=== PATIENT | female | born 1985 | race Asian ===

== ENCOUNTER → 2019-11-29 15:18 | Outpatient (BNVA) | payer OTHER, SELFPAY | PROVIDERS: Family Provider Internal Medicine; PCP Internal Medicine; Visit Provider Obstetrics & Gynecology | DX: O09.90 Supervision of high risk pregnancy, unspecified, unspecified trimester (principal) | CPT/HCPCS: 82950; 84315; 85027 ==

== ENCOUNTER → 2019-12-17 11:56 | Outpatient (BNVA) | payer OTHER, SELFPAY | PROVIDERS: Family Provider Internal Medicine; PCP Internal Medicine; Visit Provider Obstetrics & Gynecology | DX: O36.63X0 Maternal care for excessive fetal growth, third trimester, not applicable or unspecified (principal); Z3A.32 32 weeks gestation of pregnancy | CPT/HCPCS: 76816; 84315 ==

== ENCOUNTER → 2020-01-08 11:30 | Outpatient (BNVA) | payer OTHER, SELFPAY | PROVIDERS: Family Provider Internal Medicine; PCP Internal Medicine; Visit Provider Obstetrics & Gynecology | DX: O09.893 Supervision of other high risk pregnancies, third trimester (principal) | CPT/HCPCS: 84315; 87081 ==

== ENCOUNTER → 2020-01-28 13:07 | Outpatient (BNVA) | payer OTHER, SELFPAY | PROVIDERS: Family Provider Internal Medicine; PCP Internal Medicine; Visit Provider Obstetrics & Gynecology Female Pelvic Medicine and Reconstructive Surgery | DX: Z01.89 Encounter for other specified special examinations (principal) | CPT/HCPCS: 84315 ==

== ENCOUNTER → 2020-02-04 08:27 | Outpatient (BNVA) | payer OTHER, SELFPAY | PROVIDERS: Family Provider Internal Medicine; PCP Internal Medicine; Visit Provider Obstetrics & Gynecology | DX: O09.523 Supervision of elderly multigravida, third trimester (principal); Z3A.39 39 weeks gestation of pregnancy | CPT/HCPCS: 84315 ==

== ENCOUNTER 2020-02-12 08:10 | Inpatient (IN) | payer OTHER, SELFPAY ==
[2020-02-12] VITALS (44 sets, daily range): BP systolic 0–146; BP diastolic 0–88; PULSE 61–75; RESP 14–18; TEMP 36.5–36.8; O2SAT 96–100; BMI 23.9
--- NOTE | 2020-02-12 | XR_ITS ---
WS: [id number] ABDOMEN 1 VIEW(S) HISTORY: OB COUNT COMPARISON: Study earlier the same day. Normal bowel gas pattern. Radiopaque foreign body seen lateral to the LEFT hip is no longer present. No bone abnormality. XR/XR KUB portable 16031 IMPRESSION: Radiopaque foreign body lateral to the LEFT hip has been removed.
--- NOTE | 2020-02-12 09:40 | PC.NURSE ---
Shahida Haywood RN at bedside at this time explaining to pt the cost of an unmedicated, uncomplicated vaginal delivery. Pt also asked about cost difference with an induction of labor vs not being induced. Pt also asked about the cost of stay for a as well. Shahida answered pts questions thoroughly and pt had no further questions and gave verbal consent to continue with induction of labor. Yolanda Layne RN
[2020-02-12] MEDS: lactated ringers 1,000 ML 999 ML IV ×2 (10:07→13:29)
[2020-02-12 10:12] LABS: Basophils % 0.5 %; Eosinophils # 0.1 10^3/uL (0.0-0.8); Eosinophils % 2.5 %; Hematocrit 40.1 % (37.0-47.0); Lymphocytes # 1.6 10^3/uL (0.8-4.8); Lymphocytes % 28.6 %; Mean Corpuscular HGB Conc 32.4 g/dL (30.0-36.0); Mean Corpuscular Hemoglobin 30.3 pg (28.0-34.0); Mean Corpuscular Volume 93.5 fL (81-99); Mean Platelet Volume 11.1 fL (7.4-10.4); Monocytes # 0.4 10^3/uL (0.2-0.9); Monocytes % 7.5 %; Neutrophils # 3.4 10^3/uL (1.8-7.7); Neutrophils % 60.4 %; Nucleated Red Blood Cells % 0 %; Platelet Count 190 10^3/cmm (130-400); Red Blood Count 4.29 10^6/uL (4.1-5.3); Red Cell Distribution Width 14.1 % (12.1-15.1); White Blood Count 5.6 10^3/uL (4.0-10.0)
[2020-02-12] MEDS: oxytocin 30 UNIT/500 ML BAG IV (10:39)
--- NOTE | 2020-02-12 13:22 | PC.NURSE ---
Dr. Scales at bedside at this time. SVE and amniotomy performed. Moderate amount of clear fluid noted. Dr. Scales reported SVE of 4cm. Received order to recheck cervix in 20 minutes. LR bolus initiated for epidural prep. Pitocin titrated down to 12 miliunits/hr per Dr. Scales request and order received to hold titration of pitocin at this time.
--- NOTE | 2020-02-12 13:46 | PC.NURSE ---
Call to Dr. Scales at this time to report SVE of 5-6cm, this nurse palpated fingers upon exam. Received orders to perform SVE in 15 minutes and call with an update.
--- NOTE | 2020-02-12 13:57 | PC.NURSE ---
SVE performed at this time and nurse palpated hand as presenting part.
--- NOTE | 2020-02-12 13:59 | PC.NURSE ---
Addendum entered by Yolanda Layne RN 02/12/20 18:26: change time of this note to 1404 Original Note: Dr. Scales notified at this time that infants hand if felt during SVE and infants heart rate is decelerating. Dr. Scales requested for section consent to be signed by patient and reported she was on her way in.
--- NOTE | 2020-02-12 14:01 | PC.NURSE ---
Addendum entered by Yolanda Layne RN 02/15/20 11:57: 10 L Oxygen administered via non-rebreather mask by Juana Serrano RN. Original Note: Pitocin turned off at this tme due to heart decelerations. This nurse called for help at this time and assisted pt to left lateral. No change in FHT noted, position changed to right lateral and no change in FHT noted. Nurse assisted pt to hands and knees position at this time. Wilton Serrano RN and Kendy Mccoy, KONRAD at bedside for assistance at this time. 15 oxygen administered via non-rebreather mask; bolus of LR already infusing.
--- NOTE | 2020-02-12 14:12 | PC.NURSE ---
Dr. Scales at bedside. SVE performed. Dr. Scales attempted to move infants hand/arm but was unsuccessful. Decision for section made at 1414.
--- NOTE | 2020-02-12 14:58 | XR_ITS ---
WS: [id number] ABDOMEN 1 VIEW(S) HISTORY: EMERGENT SURGERY COMPARISON: None available. Recent . Radiopaque foreign body in the soft tissues lateral to the LEFT hip. This may be wi thin the folds of the soft tissues but is likely external to the peritoneal cavity. No suspicious calcifications or masses. No bone abnormality. XR/XR abdomen 1V* [id number] IMPRESSION: Curvilinear foreign body which is likely an operative sponge lateral to the LEF T hip.
--- NOTE | 2020-02-12 15:54 | ANES.PREANE2 ---
Pre-Anesthetic Assessment Pre-Anesthetic Assessment: Height/Weight: Height 1.78 m Weight 75.75 kg Temp Pulse Resp BP 97.9 F 63 16 0/0 02/12/20 13:12 02/12/20 13:52 02/12/20 13:12 02/12/20 14:11 Other Pertinent Information: unable to assess due to emergent c section Meds/Allergies Current Medications: Current Medications Generic Name Dose Route Start Last Admin Trade Name Freq PRN Reason Stop Dose Admin Lactated Ringer's 1,000 mls @ 999 m ls/hr 02/12/20 09:01 02/12/20 13:29 Lactated Ringers IV 999 mls/hr .Q1H1M PRN Administration Per L&D Rescitati on Protocol Lactated Ringer's 1,000 mls @ 999 m ls/hr 02/12/20 09:01 02/12/20 13:25 Lactated Ringers IV 999 mls/hr .Q1H1M PRN Infusion GIVE 500 mL bolus Dextrose/Lactated Ringer's 1,000 mls @ 125 m ls/hr 02/12/20 09:15 02/12/20 11:24 Dextrose 5%-Lact ated Ringers IV Not Given .Q8H COLLIN Oxytocin 30 unit in 500 ml s @ 1 mls/hr 02/12/20 09:15 02/12/20 11:15 Pitocin IV 3 milliunit/min .Q24H COLLIN 3 mls/hr Titration Protocol 1 MILLIUNIT/MIN PFSH Anesthesia PFSH: Social History Smoking and tobacco status: never smoked Alcohol intake: never Additional social history: - Drug use: Denies past or current use Alcohol Use: Denies, drank socially prior to Tobacco use: Denies, never smoked 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 Female Reproductive History: : 3 Data Anesthesia CBC & Chem 7: 02/12/20 09:50 Other Labs: Laboratory Results - last 48 hr 02/12/20 09:50 WBC 5.6 RBC 4.29 Hgb 13.0 Hct 40.1 MCV 93.5 MCH 30.3 MCHC 32.4 RDW 14.1 Plt Count 190 MPV 11.1 H Neut % (Auto) 60.4 Lymph % (Auto) 28.6 [place] % (Auto) 7.5 Eos % (Auto) 2.5 Baso % (Auto) 0.5 Neut # (Auto) 3.4 Lymph # (Auto) 1.6 [place] # (Auto) 0.4 Eos # (Auto) 0.1 Baso # (Auto) 0.0 Nucleated RBC % (auto) 0 Nucleated RBCs # 0.0 Cardiac Studies: No Data to Display
--- NOTE | 2020-02-12 15:54 | ANE.PACU2 ---
 Inpatient post-anesthesia follow up: Airway intact: Yes Vital signs: Temperature 97.9 F Pulse Rate 63 Respiratory Rate 16 Blood Pressure 0/0 Pulse Oximetry Oxygen Delivery Me thod Room Air Oxygen Flow Rate Fraction of Inspir ed Oxygen Hydration adequate: Yes Nausea and vomiting: No Mental status: Baseline
[2020-02-12] MEDS: fentaNYL 50 mcg/mL INJ 2mL IVP ×2 (16:27→17:17)
--- NOTE | 2020-02-12 16:49 | P.OP_ITS ---
Operative Report Date of procedure: OPERATIVE REPORT Date of surgery: 02/12/2020 Date of dictation: 02/12/2020 Preoperative diagnosis: 34-year-old 3 para 2-0-0-2 at 40 weeks and 3 days, GBS negative, arm prolapse, nonreassuring heart tracing-category 2 Postoperative diagnosis/findings: Same, baby girl, Apgars 8/9 weighing 7 pounds 4 ounces, normal tubes and ovaries bilaterally Procedure done: Primary low transverse delivery via Pfannenstiel incision Specimens removed/disposition of specimens: Placenta and cord which were discarded Surgeon: Dr. Isabelle Scales Physician recruiting assistant: Kendy Chahal Anesthesia: General endotracheal tube anesthesia Estimated blood loss: 800 ml Urine output: 300 mL Medications: As per anesthesia records Complications: None, patient was extubated and left to recovery in a stable condition Indication for surgery: Ms. Delacruz is a 34-year-old 3 para 2-0-0-2 at 40 weeks and 3 days who presented for scheduled elective induction of labor for term . Upon arrival she was noted to be 3 cm, 70% and -2 station and cephalic. tracing was category 1 and she had no contractions. She was started on Pitocin titrated to a maximum of 15 mIU and she was slightly uncomfortable with this. Pitocin was started at 10:30 AM. At 1:30 PM she was examined and noted to be 4 cm, 80% and -2 station and had a bulging bag and artificial rupture of membranes was performed at this time. Head was thought to be well applied to the cervix. At routine check 20 minutes after AROM the nurse stated that she thought she felt fingers. We repeated the exam 15 minutes later and arm was noted to be prolapsed past the head. Attempt was made to gently replace the arm however this was not possible and as a result decision was made to proceed with delivery. During this last 15 minutes patient had late decelerations thought to be secondary to the arm prolapse. PROCEDURE: After consent was obtained, patient was taken to the operating room where general endotracheal tube anesthesia was placed without difficulty given category 2 tracing. She was placed supine on the table with a left lateral wedge. Ortiz catheter and SCDs were placed. The abdomen was shaved and then prepped with Betadine. She was draped in a sterile fashion. Once intubated, a Pfannenstiel incision was made 2 cm above the pubic symphysis. The incision was carried down to the fascia using the scalpel. The fascia was nicked in the midline and the fascial incision was extended laterally bluntly. The rectus muscle was . The peritoneum was entered bluntly and stretched. No adhesions were noted from the uterus to the anterior abdominal wall. The uterus was noted to be rotated to the left. The bladder peritoneum was grasped with smooth forceps a bladder flap was created. the bladder blade was replaced thus protecting the bladder. A LOW TRANSVERSE UTERINE INCISION was made with a scalpel till the amniotic membrane was reached. The uterine incision was then extended laterally bluntly. Clear amniotic fluid was noted. The head of the baby was brought up to the level of the incision and delivered with fundal pressure. The remainder of body followed without any difficulty. The nose and mouth were suctioned, the umbilical cord was clamped and cut and the baby was handed off to the waiting senior program manager, Dr. Devi. The placenta was delivered spontaneously with fundal massage. It was noted to be intact and was discarded. The interior of the uterus was cleaned of all clot and debris and was noted to be chanda well. The uterus was exteriorized. The uterine incision was closed with 0 Vicryl in a running interlocking manner. Good hemostasis and reapproximation was obtained. Second imbricating layer was placed in [id number] sutures to obtain hemostasis. The abdomen was irrigated and the gutters were cleaned of clot and debris. Normal tubes and ovaries were noted bilaterally. The uterus was placed back into the abdomen and uterine incision was noted to be hemostatic. The peritoneum was closed with a 2-0 plain in a continuous stitch. The rectus muscle was reapproximated with 2-0 plain suture in a mattress stitch. Good hemostasis was noted in the rectus muscle layer. The fascia was inspected for any defects and none were found and the fascia was closed with 0 Vicryl in continuous stitch. The subcutaneous plane was then irrigated and hemostasis was obtained using the Bovie. The subcutaneous plane was then reapproximated using 2-0 plain suture in a continuous manner. The skin was then closed with 4-0 Monocryl in a subcuticular fashion. Good reapproximation and hemostasis was noted. Steri-Strips were applied. -Prior to completing the incision 2 x-rays were performed which confirmed no instruments or laps were left behind given that no count was done due to the emergent nature of the procedure secondary to category 2 tracing. The incision was dressed with Telfa ,ABD and paper tape. The fundus was noted to be firm at the end of the procedure and excess blood was expressed from the vagina. The patient was extubated and left to recover in a stable condition.
--- NOTE | 2020-02-12 16:49 | P.HP_ITS ---
Providers/Chief Complaint Admitting Physician: Isabelle Valladares MD Primary Care Provider: Fanny Devi MD Chief Complaint: induction HPI BOND RUNNER History of Present Illness Ms. Delacruz is a 34-year-old 3 para 2-0-0-2 at 40 weeks and 3 days who presented for scheduled elective induction of labor for term . Upon arrival she was noted to be 3 cm, 70% and -2 station and cephalic. tracing was category 1 and she had no contractions. She was started on Pitocin titrated to a maximum of 15 mIU and she was slightly uncomfortable with this. Pitocin was started at 10:30 AM. At 1:30 PM she was examined and noted to be 4 cm, 80% and -2 station and had a bulging bag and artificial rupture of membranes was performed at this time. Head was thought to be well applied to the cervix. At routine check 20 minutes after AROM the nurse stated that she thought she felt fingers. We repeated the exam 15 minutes later and arm was noted to be prolapsed past the head. Attempt was made to gently replace the arm however this was not possible and as a result decision was made to proceed with delivery. During this last 15 minutes patient had late decelerations thought to be secondary to the arm prolapse. Present Details : 3 Para: 2 Labs Rubella: Immune RPR: Negative GBS: Negative Review of Systems Const: Denies: fever, chills, change in appetite, change in weight, fatigue, malaise or change in sleep pattern Resp: Denies: shortness of breath, productive cough, wheezing or chest congestion GI: Denies: abdominal pain, nausea, vomiting, heartburn/indigestion, diarrhea, constipation, change in bowel habits or blood in stool : Denies: flank pain, painful urination, urinary frequency, urinary urgency, urinary incontinence, genital lesion, vaginal odor, vaginal bleeding, vaginal discharge, change in menstrual flow or pain during intercourse Psych: Denies: anxiety, depression, mood swings or change in appetite Medications/Allergies Home Medications Medication Instructions Recorded Confirmed Last Taken Type prenat.vits,isidra,oet-ytnq-kgllb 1 tab PO DAILY tab 10/24/19 02/13/20 Unknown History magnesium 30 mg tablet 30 mg PO DAILY 12/17/19 02/13/20 Unknown History breast pump #1 each 02/14/20 Unknown Rx docusate sodium 100 mg PO BID PRN #30 cap 02/14/20 Unknown Rx hydrocodone-acetaminophen 1 tab PO Q6H #30 tab 02/14/20 Unknown Rx ibuprofen 800 mg PO Q8H #30 tab 02/14/20 Unknown Rx Allergies Allergy/AdvReac Type Severity Reaction Status Date / Time No Known Allergies Allergy Verified 02/04/20 08:21 PFSH BOND RUNNER PFSH: Medical History No pertinent past medical history Denies diabetes,asthma hypertension, seizures, DVT/PE PCP: REGINA gross Surgical History S/P tonsillectomy (~1988) at the age of 3 or 4 Status post delivery Primary low transverse delivery on 02/12/2020 done for arm prolapse [place] Dr. Scales [place] [facility] Double layer closure with no extensions. 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 Other Female Reproductive History: Menstrual History Comment: Menarche at age 10, regular 30 day cycles lasting for 4 days. Sexual History: STD History Comment: Coitarche at age 30, one lifetime partner her Marc who is a radiation oncologist at [facility]. Contraception: Contraception History Comment: Has only used condoms in the past for contraception. Plans on using condoms as well History History History 3 Term 2 Miscarriages/Ectopic 0 0 Living Children 2 Other History: ; VAVD X 1, X 1, CD X 1 1---> 11/10/2015, augmentation of labor for premature rupture of membranes at 41 weeks and 3 days, GBS positive. Mild chorioamnionitis just prior to delivery treated by antibiotics. vacuum assisted Vaginal delivery with a right mediolateral episiotomy. No or antepartum complications. Baby girl, Nazanin--- [facility] with Yordy 2----> 09/27/2017: Active labor, full-term vaginal delivery at 40 weeks [address] Scales [place] [facility], second-degree perineal tear. Baby girl Doris weighing 8 pounds 10-1/2 ounces 3----> 02/12/2020; induction of labor at 40 weeks and 2 days electively, primary low transverse delivery by Dr. Scales [facility] for arm prolapse after rupture of membranes and category 2 tracing. Baby girlGloria weighing 7 pounds 4 ounces. Normal postoperative course. Care ESTEFANÍA Calculator Estimated Delivery Date Method Current WG Current Estimate 02/09/20 Ultrasound #1 41w 3d Other Estimates 02/18/20 LMP (Certain) 40w 1d Expected Delivery Route/Plan Vaginal. Specific Issues/Plans * Advanced maternal age OB Visit Log Initial Weight: 140 lb Date -?-?-?-?-?-?-?-?-?-?-?- EGA Weight BP Albumin -?-?-?-?-?-?-?-?-?-?-?-?- Glucose Nitrate -?-?-?-?-?-?-?-?-?-?-?-?- Blood Fun Ht PRES HR MVMT -?-?-?-?-?-?-?-?-?-?- Edema Dilation Effacement -?-?-?-?-?-?-?-?-?-?-?- Station 07/20/19 -?-?-?-?-?-?-?-?-?-?-?- 10w 6d 140 lb (+0 oz) 110/60 neg -?-?-?-?-?-?-?-?-?-?-?-?- neg -?-?-?-?-?-?-?-?-?-?-?-?- -?-?-?-?-?-?-?-?-?-?- none -?-?-?-?-?-?-?-?-?-?-?- 07/25/19 -?-?-?-?-?-?-?-?-?-?-?- 11w 4d 142 lb (+2 lb) 108/60 neg -?-?-?-?-?-?-?-?-?-?-?-?- neg -?-?-?-?-?--?-?-?-?-?-?-?- 161 -?-?-?-?-?-?-?-?-?-?- none -?-?-?-?-?-?-?-?-?-?-?- 08/10/19 -?-?-?-?-?-?-?-?-?-?-?- 13w 6d 142 lb (+2 lb) 90/50 neg -?-?-?-?-?-?-?-?-?-?-?-?- neg -?-?-?-?-?-?-?-?-?-?-?-?- 158 -?-?-?-?-?-?-?-?-?-?- none -?-?-?-?-?-?-?-?-?-?-?- 09/05/19 -?-?-?-?-?-?-?-?-?-?-?- 17w 4d 144 lb (+4 lb) 96/60 neg -?-?-?-?-?-?-?-?-?-?-?-?- neg -?-?-?-?-?-?-?-?-?-?-?-?- 157 -?-?-?-?-?-?-?-?-?-?- none -?-?-?-?-?-?-?-?-?-?-?- 10/26/19 -?-?-?-?-?-?-?-?-?-?-?- 24w 6d 152 lb 2 oz (+12 lb 2 oz) 110/70 Neg (Negat bill) -?-?-?-?-?-?-?-?-?-?-?-?- Norm (Normal) Negative (Negat bill) -?-?-?-?-?-?-?-?-?-?-?-?- 23 146 active -?-?-?-?-?-?-?-?-?-?- absent -?-?-?-?-?-?-?-?-?-?-?- 11/29/19 -?-?-?-?-?-?-?-?--?-?-?- 29w 5d 159 lb 4 oz (+19 lb 4 oz) 102/76 Neg (Negat bill) -?-?-?-?-?-?-?-?-?-?-?-?- Norm (Normal) Negative (Negat bill) -?-?-?-?-?-?-?-?-?-?-?-?- 30 141 active -?-?-?-?-?-?-?-?-?-?- absent -?-?-?-?-?-?-?-?-?-?-?- 12/17/19 -?-?-?-?-?-?-?-?-?-?-?- 32w 2d 158 lb 6 oz (+18 lb 6 oz) 100/70 Neg (Negat bill) -?-?-?-?-?-?-?-?-?-?-?-?- Norm (Normal) Negative (Negat bill) -?-?-?-?-?-?-?-?-?-?-?-?- Neg (Negative) 32 145 act bill -?-?-?-?-?-?-?-?-?-?- absent -?-?-?-?-?-?-?-?-?-?-?- 01/08/20 -?-?-?-?-?-?-?-?-?-?-?- 35w 3d 160 lb (+20 lb) 100/60 Neg (Negative ) -?-?-?-?-?-?-?-?-?-?-?-?- Norm (Normal) Negative (Negat bill) -?-?-?-?-?-?-?-?-?-?-?-?- Neg (Negative) 35.5 Cephalic 157 157 active -?-?-?-?-?-?-?-?-?-?- absent 20 -?-?-?-?-?-?-?-?-?-?-?- -1 01/28/20 -?-?-?-?-?-?-?-?-?-?-?- 38w 2d 163 lb (+23 lb) 132/68 Neg (Negative ) -?-?-?-?--?-?-?-?-?-?-?-?- Norm (Normal) Negative (Negat bill) -?-?-?-?-?-?-?-?-?-?-?-?- Neg (Negative) 36 cephalic 133 active -?-?-?-?-?-?-?-?-?-?- absent 1 50 -?-?-?-?-?-?-?-?-?-?-?- -2 02/04/20 -?-?-?-?-?-?-?-?-?-?-?- 39w 2d 167 lb (+27 lb) 100/64 Neg (Negative ) -?--?-?-?-?-?-?-?-?-?-?-?- Norm (Normal) Negative (Negat bill) -?-?-?-?-?-?-?-?-?-?-?-?- Neg (Negative) 39 Cephalic 133 active -?-?-?-?-?-?-?-?-?-?- absent 2-3 70 -?-?-?-?-?-?-?-?-?-?-?- -1 02/12/20 -?-?-?-?-?-?-?-?-?-?-?- 40w 5d 167 lb (+27 lb) 116/70 0/0 117/77 0/0 107/80 0/0 0/0 0/0 0/0 119/80 0/0 116/69 0/0 119/72 0/0 122/79 0/0 115/73 129/72 133/80 146/76 135/64 131/76 130/70 136/61 125/78 136/88 124/70 107/71 115/73 115/76 114/72 119/71 123/79 119/76 112/69 117/73 107/65 108/70 100/65 99/60 95/57 90/59 79/48 101/67 100/62 100/62 105/60 115/70 -?-?-?-?-?-?-?-?-?-?-?-?- -?-?-?-?-?-?-?-?-?-?-?-?- Vertex Vertex Vertex Compound 135 130 145 135 130 125 145 130 125 125 130 125 130 135 130 135 115 130 -?-?-?-?-?-?-?-?-?-?- -?-?-?-?-?-?-?-?-?-?-?- -2 -1 -1 Notes Visit Date: 02/12/20 No visit notes to display Visit Date: 02/04/20 KARISHMA@ 39w2d----> no complaints; has questions about labor and induction and will call me if she decides on an induction date; GBS negative; advanced maternal age with low risk NIPT-no further intervention; membranes stripped today Isabelle Valladares MD on 02/04/20 Visit Date: 01/28/20 Patient presents for routine OB states that that she did have some cramping down her right calf today now has stocking type numbness on her right foot. No swelling noted normal sensation to light touch no calf tenderness negative Homans Patient also states decreased movement NST today is reactive bedside biophysical profile by me is 10/10 female fetus cephalic excellent movement tone respiratory efforts normal amniotic fluid Abad Caraballo DO on 01/28/20 rafa Ventura LPN on 01/28/20 Visit Date: 01/08/20 KARISHMA@ 35w3d-----> no complaints; GBS today; advanced maternal age; coronavirus concerns addressed; increased ambulation after 37 weeks- Isabelle Valladares MD on 01/12/20 Visit Date: 12/17/19 KARISHMA at 32-2/7 WG. GCT and hemogram normal. Ultrasound due to LGA fetus. labor precautions discussed. Clifton Saleh MD on 12/17/19 Visit Date: 11/29/19 KARISHMA at 29-5/7 WG. GCT hemogram today. labor precautions discussed. Exposure to the flu with probable flu last week. At this point, too late for prophylaxis/treatment for the flu. Symptomatic relief discussed. Schedule follow-up ultrasound for growth and facial features. Clifton Saleh MD on 12/03/19 Visit Date: 10/26/19 KARISHMA at 24.6WG----> Anatomy scan needs full review but prelim is normal with the exception of date change. There is 10 day diff in dates therefore, we will change her EDC to 02/09/2020. Reports potential parvo b-19 virus; not con firmed but declines IgG and IgM antibodies today. Encouraged flu vaccine. labor precautions and kick counts reviewed. GCT/CBC at next visit. Franny Heath APN, BROWN on 10/26/19 Visit Date: 09/05/19 No visit notes to display Visit Date: 08/10/19 OB exam at 12w4d------> no complaints; labs drawn today-declined HIV, cystic fibrosis previously negative, hepatitis C antibody and rubella deferred as it was previously within normal limits; flu vaccine recommended; gonorrhea Chlamydia Pap smear and high-risk HPV done today; minimal nausea- symptomatic management discussed; AMA-GCT and NIPT done today; serum AFP if desires at next visit Visit Date: 07/25/19 Initial OB DrWai visit at 10 weeks and 2 days---> advanced maternal age- counseling done-desires NIPT; labs at next visit;; counseling done, gonorrhea Chlamydia and Pap smear at next visit Visit Date: 07/20/19 Obi at 9.4 WG------> 34 y/o with LMP of 05/14/19 (guess) and EDC of 02/18/2020. - guessing at her last menstrual periods but she notes it was in April. - AMA; thoroughly reviewed panorama, quad, AFP -Ob packet provided. Reviewed routine vist schedule, labs, approved medications in , discussed the importance of avoiding nicotine/alcohol/drugs and the effects this has on her and the , and when to notify the doctor. Medical and obstetrical history reviewed. ? -Continue vitamins. - labs at next visit; discussed NIPT, QUAD, AFP, CF. Vitals/I&O/Wt Last Vital Signs Temp 97.9 F 02/12/20 13:12 Pulse 63 02/12/20 13:52 Resp 18 02/12/20 16:27 BP 0/0 02/12/20 14:11 Pulse Ox 100 02/12/20 16:27 02/12/20 02/12/20 02/12/20 06:59 14:59 22:59 Intake Total 820.967 / 820.967 Balance 820.967 / 820.967 Weight last 48 hrs Weight 167 lb Data : 02/13/20 04:05 A&P Assessment and plan (1) Non-reassuring heart rate or rhythm affecting management of fetus: -Discussed with patient that given the recurrent decelerations and the inability toReplace the prolapsed arm that I would recommend we proceed with a . Given that she is having decelerations we will have to do general anesthesia. Consent was obtained after discussing risks benefits and alternatives. -Antibiotics to be given in the operating room -Anesthesia and pediatricians were notified. -To operating room for emergent Status: Resolved (2) Prolapsed arm of fetus: Status: Resolved Attestations Medical Necessity Statement*: Patient is having surgery and will require time to recover Coding Level of Care Code Acute Director Of Land for Chg Fwd Diagnoses Non-reassuring heart rate or rhythm affecting management of fetus Prolapsed arm of fetus O32.2XX0
[2020-02-12] MEDS: ketorolac 30 mg/mL INJ IVP (17:18)
[2020-02-12] MEDS: HYDROcodone-acetaminophen 5-325 mg Tablet PO (20:35)
[2020-02-12] MEDS: docusate sodium 100 mg Capsule PO (20:36)
[2020-02-12] MEDS: dextrose 5%-lactated ringers 1,000 ML 125 ML IV (20:46)
--- NOTE | 2020-02-12 23:57 | PC.NURSE ---
PT AMBULATED IN LU WITH NURSE ALONGSIDE FOR TEN MINUTES AT 2340. PT TOLERATED WELL.
[2020-02-13] VITALS (7 sets, daily range): BP systolic 79–108; BP diastolic 48–70; PULSE 63–76; RESP 14–18; TEMP 36.6–36.9; O2SAT 95–97
[2020-02-13] MEDS: HYDROcodone-acetaminophen 5-325 mg Tablet PO (03:27)
[2020-02-13 04:24] LABS: Hematocrit 29.9 % (37.0-47.0); Hemoglobin 9.9 g/dL (11.5-15.3); Mean Corpuscular HGB Conc 33.1 g/dL (30.0-36.0); Mean Corpuscular Hemoglobin 30.9 pg (28.0-34.0); Mean Corpuscular Volume 93.4 fL (81-99); Mean Platelet Volume 10.8 fL (7.4-10.4); Platelet Count 163 10^3/cmm (130-400); White Blood Count 8.6 10^3/uL (4.0-10.0)
[2020-02-13] MEDS: dextrose 5%-lactated ringers 1,000 ML 125 ML IV (04:28)
[2020-02-13] MEDS: docusate sodium 100 mg Capsule PO (08:18)
[2020-02-13] MEDS: prenatal vitamin Capsule 1 CAP PO (08:18)
--- NOTE | 2020-02-13 10:33 | P.PN_ITS ---
Subjective Subjective: Interval history: Dana is doing okay today. She does have some pain but it is not as bad as it was yesterday and pain medication keeps it under control. Her bleeding is not very heavy. She has been breast-feeding without any difficulty and the nurses have been helping her with the baby. She is voided freely and has been ambulating well. She has not yet passed flatus however is tolerating clears and not having any nausea or vomiting. She denies shortness of breath, chest pain, nausea, vomiting. She does have a little bit of throat pain likely from intubation but is otherwise doing okay. Vitals/I&O/Wt Last Vital Signs Temp 97.9 F 02/14/20 16:30 Pulse 70 02/14/20 17:30 Resp 18 02/14/20 17:30 BP 115/70 02/14/20 17:30 Pulse Ox 97 02/13/20 06:05 Physical Exam Narrative: EXAM NARRATIVE: Gen.: No acute distress Heart: S1-S2 heard, regular rate and rhythm Lungs: Clear to auscultation bilaterally Abdomen: Soft, fundus firm below umbilicus, tenderness around incision. Incision: Clean dry and intact with Steri-Strips, dressing was removed Legs: No calf tenderness, trace bilateral pitting pedal edema. Urinary Catheter Management^: Ortiz: Cath Placed During This Visit: yes, but has since been removed by the nurse Reason for Continuing Indwelling Catheter: Required Immobilization for Trauma or Surgery or Anesthesia Urinary Catheter Date of Insertion: 02/12/20 Urinary Catheter Time of Insertion: 14:22 Date Urinary Catheter Removed: 02/13/20 Time Urinary Catheter Discontinued: 06:00 Data : 02/13/20 04:05 A&P Assessment and plan (1) Status post delivery: Status: Acute Additional A&P Information -34-year-old 3 para 3 status post primary delivery for category 2 tracing and prolapse, postoperative day 1 -Doing well-encourage ambulation and incentive spirometry use -Hemoglobin stable at 9.9 and vital signs are within normal limits -Catheter has been discontinued and she has been voiding freely -Currently on full liquid diet-we will advance diet when she passes flatus- encourage ambulation -Can discontinue IV, incision appears clean dry and intact-abdominal binder provided, prescription breast pump provided -Continue breast-feeding -Anticipate discharge home tomorrow if she continues to do well after she passes gas and tolerates regular diet. Attestations Medical Necessity Statement*: She will need to stay another day at least to recover from . 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 Mild chorioamnionitis just prior to delivery treated by antibiotics. vacuum assisted Vaginal delivery with a right mediolateral episiotomy. No or antepartum complications. Baby Nazanin ortiz--- [facility] [place] with Yordy 2----> 09/27/2017: Active labor, full-term vaginal delivery at 40 weeks [address] Scales at [facility] [place], second-degree perineal tear. Baby angel George weighing 8 pounds 10-1/2 ounces 3----> 02/12/2020; induction of labor at 40 weeks and 2 days electively, primary low transverse delivery by Dr. Scales [facility] [place] for arm prolapse after rupture of membranes and category 2 tracing. Baby Gloria ortiz weighing 7 pounds 4 ounces. Normal postoperative course.
--- NOTE | 2020-02-13 11:28 | W.PM.OPSUD ---
Surgery/Procedure H&P Update DATE OF PROCEDURE: February 13, 2020 DATE H&P PERFORMED: 02/12/20 H&P UPDATE INFORMATION: I have reviewed H&P completed within last 30 days and I have examined patient prior to procedure PREOP DIAGNOSIS: Missed AB PLANNED PROCEDURE: Operation Date: 02/12/20 14:15 Proposed Procedures p Section(Not Applicable) - Isabelle Valladares MD
--- NOTE | 2020-02-13 12:33 | PC.NURSE ---
Abdominal binder applied to patient. Patient states it is tight, but not uncomfortably so.
[2020-02-14 04:30] VITALS: BP 100/62; PULSE 62; RESP 16
[2020-02-14] MEDS: docusate sodium 100 mg Capsule PO (08:46)
[2020-02-14] MEDS: prenatal vitamin Capsule 1 CAP PO (08:46)
[2020-02-14 10:10] VITALS: BP 100/62; PULSE 70; RESP 17
[2020-02-14 16:30] VITALS: BP 105/60; PULSE 60; RESP 16; TEMP 36.6
[2020-02-14 17:30] VITALS: BP 115/70; PULSE 70; RESP 18
--- NOTE | 2020-02-19 17:41 | PM.DCS ---
Discharge Providers Date of Admission: 02/12/20 08:10 Date of Discharge: february 14, 2020 Attending Provider at Admission: Isabelle Valladares MD Attending Provider at Discharge: Isabelle Valladares MD Primary Care Provider: Fanny Devi MD Diagnoses at Discharge Discharge Diagnosis (1) Status post delivery: Status: Acute Problem details: Primary low transverse delivery on 02/12/2020 done for arm prolapse by Dr. Scales at [facility] [place]. Double layer closure with no extensions. Reason for Visit Reason for Visit: Reason For Visit: induction Hospital Course Hospital Course: Ms. Delacruz is a 34-year-old 3 para 2-0-0-2 at 40 weeks and 3 days who presented for scheduled elective induction of labor for term . Upon arrival she was noted to be 3 cm, 70% and -2 station and cephalic. tracing was category 1 and she had no contractions. She was started on Pitocin titrated to a maximum of 15 mIU and she was slightly uncomfortable with this. Pitocin was started at 10:30 AM. At 1:30 PM she was examined and noted to be 4 cm, 80% and -2 station and had a bulging bag and artificial rupture of membranes was performed at this time. Head was thought to be well applied to the cervix. At routine check 20 minutes after AROM the nurse stated that she thought she felt fingers. We repeated the exam 15 minutes later and arm was noted to be prolapsed past the head. Attempt was made to gently replace the arm however this was not possible and as a result decision was made to proceed with delivery. During this last 15 minutes patient had late decelerations thought to be secondary to the arm prolapse. Discharge Summary: She underwent an emergency delivery under general anesthesia on 02/12/2020-see operative report for details. She did well on day 1 and was ambulating well, tolerating clear liquid diet and voiding freely after catheter removal.. She was breast-feeding without difficulty and bonding well with her daughter. Pain was well-controlled with by mouth pain medication. She denied nausea, vomiting, fever, chills, shortness of breath, leg pain. She had moderate vaginal bleeding. On day # 2 she continued to do well with stable vital signs and stable hemoglobin at 9.9. She was tolerating regular diet and passing flatus. Incision was clean dry and intact she was discharged home on day 2 in a stable condition. Warning signs for endometritis, mastitis, DVT/PE were reviewed with her. Post delivery activity restrictions were also reviewed with her at all her questions were answered to her satisfaction. Plans on using condoms or contraception at this time. Physical Exam Narrative: EXAM NARRATIVE: Gen.: No acute distress Heart: S1-S2 heard, regular rate and rhythm Lungs: Clear to auscultation bilaterally Abdomen: Soft, fundus firm below umbilicus, tenderness around incision. Incision: Clean dry and intact with Steri-Strips. Legs: No calf tenderness, trace bilateral pitting pedal edema. Urinary Catheter Management^: Ortiz: Cath Placed During This Visit: yes, but has since been removed by the nurse Reason for Continuing Indwelling Catheter: Required Immobilization for Trauma or Surgery or Anesthesia Urinary Catheter Date of Insertion: 02/12/20 Urinary Catheter Time of Insertion: 14:22 Date Urinary Catheter Removed: 02/13/20 Time Urinary Catheter Discontinued: 06:00 Discharge Data Data Completed and Pending: Completed Studies During Hospitalization Category Date Time Status XR KUB portable [id number] Stat Exams 02/12/20 Completed XR abdomen 1V* [id number] Stat Exams 02/12/20 14:58 Completed Vitals: Last Vital Signs Temp 97.9 F 02/14/20 16:30 Pulse 70 02/14/20 17:30 Resp 18 02/14/20 17:30 BP 115/70 02/14/20 17:30 Pulse Ox 97 02/13/20 06:05 Discharge Plan Discharge Patient Disposition: Home, Self-Care Condition: Stable Prescriptions: New ibuprofen 800 mg tablet 800 mg PO Q8H Qty: 30 RF: 0 hydrocodone-acetaminophen 5-325 mg tablet 1 tab PO Q6H Qty: 30 RF: 0 docusate sodium 100 mg Capsule 100 mg PO BID PRN (Reason: constipation) Qty: 30 RF: 0 Continued magnesium 30 mg tablet 30 mg PO DAILY RF: 0 prenat.vits,isidra,olh-xwos-yhcmu Tablet 1 tab PO DAILY RF: 0 No Action (DME) breast pump Device See Rx Instructions .ROUTE .MEDSUPPLY Qty: 1 RF: 0 Discharge Orders: Discharge Order (Routine); Ordered 02/14/20 Ordered By: Isabelle Valladares Referrals: Isabelle Valladares MD [Physician] - (February 27, 2020 at 4:00pm with Dr Scales March 26, 2020 at 4:00pm with Dr Scales) Discharge Diet: Usual diet Patient Instructions: Hydrocodone/Acetaminophen (By mouth), Ibuprofen (By mouth), Vitamins (By mouth), Laxative, Stool Softeners (By mouth), OB [facility], OB Discharge Report, OB Food/Drug Interaction Guide, OB Care at Home, OB Home Care, OB Proud Parent Packet Activity Restrictions/Additional Instructions: Pelvic rest for 6 weeks No heavy lifting more than 10 pounds for 6 weeks Discharge Date/Time: 02/14/20 17:50 Discharge Attestations Time Spent in Discharge Care*: greater than 30 min Quality Metrics Clinical Quality Measures During this hospital stay, did patient experience: None Coding Level of Care Code Acute [employer]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
== END 2020-02-14 17:50 | disposition home or self-care (01) | DRG 788 ==
PROVIDERS: Admitting Provider Obstetrics & Gynecology; Family Provider Internal Medicine; PCP Internal Medicine; Visit Provider Obstetrics & Gynecology
PROC: 10D00Z1 Extraction of Products of Conception, Low, Open Approach (ICD-10-PCS; CPT 59514; principal; 2020-02-12 14:15)
DX: O32.2XX0 Maternal care for transverse and oblique lie, not applicable or unspecified (principal); O76 Abnormality in fetal heart rate and rhythm complicating labor and delivery; Z3A.40 40 weeks gestation of pregnancy; Z37.0 Single live birth
CPT/HCPCS: 12345; 36415; 51702; 59025; 74018; 85025; 85027; 96374; 96375; J0330; J1885; J2590; J3010; J7030